=== PATIENT | female | born 1995 | race American Indian/Alaskan Native ===

== ENCOUNTER 2017-09-29 13:38 | Emergency (ER) | payer MEDICAID, OTHER ==
[2017-09-29 14:15] VITALS: BP 102/59
== END 2017-09-29 14:30 | disposition left against medical advice (07) ==
LOC: ED 13:38
DX: J02.9 Acute pharyngitis, unspecified (principal); H92.09 Otalgia, unspecified ear; Z53.21 Procedure and treatment not carried out due to patient leaving prior to being seen by health care provider

== ENCOUNTER 2018-04-16 14:25 | Emergency (ER) | payer MEDICAID ==
[2018-04-16] MEDS ORDERED: IBUPROFEN PO ONE (15:11)
[2018-04-16] MEDS ORDERED: TESSALON PERLES PO ONE (15:11)
[2018-04-16 16:38] LABS: Bilirubin,Urine NEG (Negative); Blood,Urine NEG (Negative); Color,Urine Yellow (Yellow); Mucus,Urine 3+ /HPF; Protein,Urine <15 mg/dL mg/dL (Negative)
--- NOTE | 2018-04-16 17:23 | Emergency Department Report ---
- General Chief Complaint: Upper Respiratory Infection Stated Complaint: FLU LIKE SYMPTOMS Time Seen by Provider: 04/16/18 15:08 Source: patient Mode of arrival: Ambulatory Limitations: No Limitations - History of Present Illness Initial Comments: This is a 22-year-old female nontoxic, well nourished in appearance, no acute signs of distress presents to the ED with c/o of productive cough, fever, chills, body aches, rhinorrhea, nasal congestion x2 days. Patient describes productive cough as yellow mucus production. Patient denies any sick contact. Patient denies any recent travels, long car, recent hospital stays. Patient denies any calf pain or calf tenderness. Patient denies any chest pain, short of breath, fever, chills, nausea, vomiting, hemoptysis, numbness, tingling, headache or stiff neck. Patient denies any allergies. MD Complaint: fever, cough, rhinorrhea, nasal congestion, other (body aches) -: days(s) (2) Severity: mild Severity scale (0 -10): 8 Quality: aching Consistency: constant Improves With: nothing Worsens With: nothing Associated Symptoms: fever, chills, rhinorrhea, nasal congestion, cough. denies: myalgias, diaphoresis, headache, sore throat, stiff neck, chest pain, shortness of breath, abdominal pain, nausea, vomiting, diarrhea, dysuria, rash, confusion, right sweats, weight loss, epistaxis, hoarseness, ear pain Treatments Prior to Arrival: none - Related Data Previous Rx's Medication Instructions Recorded Last Taken Type Cyclobenzaprine [Flexeril] 10 mg PO TID PRN #15 tablet 02/21/16 Unknown Rx Ibuprofen [Motrin 800 MG tab] 800 mg PO Q8HR PRN #20 tablet 02/21/16 Unknown Rx Acetaminophen [Tylenol] 325 mg PO Q6H PRN #20 capsule 04/16/18 Unknown Rx Azithromycin [Zithromax Z-YUN] 250 mg PO DAILY #6 tablet 04/16/18 Unknown Rx Oseltamivir [Tamiflu] 75 mg PO BID #14 cap 04/16/18 Unknown Rx 21/Iron Fu/Folic Acid 1 each PO DAILY #30 tablet 04/16/18 Unknown Rx [ Complete Caplet] Allergies Allergy/AdvReac Type Severity Reaction Status Date / Time No Known Allergies Allergy Unverified 02/21/16 17:29 ED Review of Systems ROS: Stated complaint: FLU LIKE SYMPTOMS Other details as noted in HPI Constitutional: denies: chills, fever Eyes: denies: eye pain, eye discharge, vision change ENT: congestion. denies: ear pain, throat pain Respiratory: cough. denies: shortness of breath, wheezing Cardiovascular: denies: chest pain, palpitations Endocrine: no symptoms reported Gastrointestinal: denies: abdominal pain, nausea, diarrhea Genitourinary: denies: urgency, dysuria, discharge Musculoskeletal: denies: back pain, joint swelling, arthralgia Skin: denies: rash, lesions Neurological: denies: headache, weakness, paresthesias Psychiatric: denies: anxiety, depression Hematological/Lymphatic: denies: easy bleeding, easy bruising ED Past Medical Hx - Past Medical History Previous Medical History?: Yes Hx Asthma: Yes - Surgical History Past Surgical History?: Yes Additional Surgical History: c section - Social History Smoking Status: Never Smoker Substance Use Type: None - Medications Home Medications: Home Medications Medication Instructions Recorded Confirmed Last Taken Type Cyclobenzaprine [Flexeril] 10 mg PO TID PRN #15 tablet 02/21/16 Unknown Rx Ibuprofen [Motrin 800 MG tab] 800 mg PO Q8HR PRN #20 tablet 02/21/16 Unknown Rx Acetaminophen [Tylenol] 325 mg PO Q6H PRN #20 capsule 04/16/18 Unknown Rx Azithromycin [Zithromax Z-YUN] 250 mg PO DAILY #6 tablet 04/16/18 Unknown Rx Oseltamivir [Tamiflu] 75 mg PO BID #14 cap 04/16/18 Unknown Rx 21/Iron Fu/Folic Acid 1 each PO DAILY #30 tablet 04/16/18 Unknown Rx [ Complete Caplet] ED Physical Exam - General Limitations: No Limitations General appearance: alert, in no apparent distress - Head Head exam: Present: atraumatic, normocephalic - Eye Eye exam: Present: normal appearance - ENT ENT exam: Present: normal exam, normal orophraynx - Neck Neck exam: Present: normal inspection, full ROM. Absent: tenderness, meningismus, lymphadenopathy - Respiratory Respiratory exam: Present: normal lung sounds bilaterally. Absent: respiratory distress, wheezes, rales, rhonchi, stridor, chest wall tenderness, accessory muscle use, decreased breath sounds, prolonged expiratory - Cardiovascular Cardiovascular Exam: Present: regular rate, normal rhythm, normal heart sounds. Absent: bradycardia, tachycardia, irregular rhythm, systolic murmur, diastolic murmur, rubs, gallop - GI/Abdominal GI/Abdominal exam: Present: soft, normal bowel sounds. Absent: distended, tenderness, guarding, rebound, rigid, diminished bowel sounds - Extremities Exam Extremities exam: Present: normal inspection, full ROM - Back Exam Back exam: Present: normal inspection, full ROM. Absent: tenderness, CVA tenderness (R), CVA tenderness (L), muscle spasm, paraspinal tenderness, vertebral tenderness, rash noted - Neurological Exam Neurological exam: Present: alert, oriented X3 - Psychiatric Psychiatric exam: Present: normal affect, normal mood - Skin Skin exam: Present: warm, dry, intact, normal color. Absent: rash ED Course Vital Signs 04/16/18 04/16/18 14:34 15:36 Temperature 98.6 F Pulse Rate 81 Respiratory 18 18 Rate Blood Pressure 113/69 O2 Sat by Pulse 100 Oximetry - Reevaluation(s) Reevaluation #1: 04/16/18 17:21 Patient is speaking in full sentences with no signs of distress noted. ED Medical Decision Making - Medical Decision Making This is a 22-year-old female that presents with flu like symptoms. Patient is stable and was examined by me. Patient was not aware of but test states positive. Patient was informed about risk and benefits of chest xray and and patient signed consent to proceed. Chest x-ray has been obtained and dictated by radiologist with normal exam. Patient is notified of x-ray results with no questions noted. No flu swabs available in the ED, as per RN. I will treat patient empirically with Tamiflu due to the symptoms. Patient was instructed to increase hydration, rest and take Motrin for fever episodes. Patient received Tylenol and tesslone perrls in the ED. Vitals stable. Patient is nonfebrile and normal heart rate. Patient was instructed Follow-up with a primary care doctor in 3-5 days or if symptoms worsen and continue return to emergency room as soon as possible. At time time of discharge, the patient does not seem toxic or ill in appearance. No acute signs of distress noted. Patient agrees to discharge treatment plan of care. No further questions noted by the patient. Critical care attestation.: If time is entered above; I have spent that time in minutes in the direct care of this critically ill patient, excluding procedure time. ED Disposition Clinical Impression: Bronchitis, Flu-like symptoms Disposition: TO HOME OR SELFCARE Is pt being admited?: No Does the pt Need Aspirin: No Condition: Stable Instructions: Acute Bronchitis (ED) Additional Instructions: Follow-up with a primary care/OBGYN doctor in 3-5 days or if symptoms worsen and continue return to emergency room as soon as possible. Prescriptions: Acetaminophen [Tylenol] 325 mg PO Q6H PRN #20 capsule PRN Reason: pain/fever Azithromycin [Zithromax Z-YUN] 250 mg PO DAILY #6 tablet Oseltamivir [Tamiflu] 75 mg PO BID #14 cap 21/Iron Fu/Folic Acid [ Complete Caplet] 1 each PO DAILY #30 tablet Referrals: PRIMARY CAREMD [Referring] - 3-5 Days MILENA JAIMES MD [Staff Physician] - 3-5 Days JACOB ANTONIO MD [Staff Physician] - 3-5 Days [facility] [Provider Group] - 3-5 Days Forms: Work/School Release Form(ED)
--- NOTE | 2018-04-16 18:03 | XRay Report ---
FINAL REPORT EXAM: XR CHEST ROUTINE 2V HISTORY: cough TECHNIQUE: PA and lateral views of the chest Comparison: X-ray chest dated February 21, 2016 FINDINGS: There prominence of the interstitial markings with peribronchial thickening which may represent bello es of bronchiolitis. There is no definite evidence of focal infiltrate and no evidence of pneumothorax or pleural fluid co llection. The cardiomediastinal silhouette is normal in appearance. The bony structures are unremarkable. IMPRESSION: 1. Prominence of the interstitial markings with peribronchial thickening which may represent changes of bronchiolitis. However, early peribronchial pulmonary infiltrates cannot be excluded.
[2018-04-16 18:22] VITALS: BP 138/79
== END 2018-04-16 18:18 | disposition home or self-care (01) ==
LOC: ED 14:25
DX: J45.909 Unspecified asthma, uncomplicated (principal)
CPT/HCPCS: 36415; 71046; 81001; 84703; 99284

== ENCOUNTER 2019-04-26 14:47 | Emergency (ER) | payer SELFPAY ==
--- NOTE | 2019-04-26 15:44 | Event Note ---
ED Screening Note Date of service: 04/26/19 Time: 15:44 ED Screening Note: preg (unknown gestational age) with bleeding and cramps (clots). no syncope This initial assessment/diagnostic orders/clinical plan/treatment(s) is/are subject to change based on patients health status, clinical progression and re- assessment by fellow clinical providers in the ED. Further treatment and workup at subsequent clinical providers discretion. Patient/guardian urged not to elope from the ED as their condition may be serious if not clinically assessed and managed. Initial orders include: quant labs US ob Patient Rh + no Rhogam in previous miscarriage last year
[2019-04-26 17:07] LABS: Bacteria,Urine 2+ /HPF (Negative); Bilirubin,Urine NEG (Negative); Blood,Urine LG (Negative); Color,Urine Red (Yellow); Mucus,Urine FEW /HPF; Urobilinogen,Urine < 2.0 mg/dL (<2.0)
[2019-04-26 17:12] LABS: RBC,Urine > 128.0 /HPF (0.0-6.0); WBC,Urine > 128.0 /HPF (0.0-6.0)
--- NOTE | 2019-04-26 17:14 | Emergency Department Report ---
ED General Adult HPI - General Chief complaint: Abdominal Pain Stated complaint: POSS PREG TEST/ABD PAIN/ACHES Time Seen by Provider: 04/26/19 16:57 Source: patient Mode of arrival: Ambulatory Limitations: No Limitations - History of Present Illness Initial comments: Patient is a 23-year-old female presents emergency room with complaints of lower abdominal pain that began 2 days ago. She has associated vaginal bleeding which she states was initially heavy but has now become light. Patient states that she went to her primary care physician and her urine was tested and it was positive on April 18. Patient was also evaluated emergency department for URI symptoms on April 16 and had a positive hCG qualitative. She has not seen an EQUIPMENT SERVICE ASSOCIATE. She denies any nausea, vomiting, diarrhea, fever, urinary symptoms, vaginal irritation, vaginal discharge. She states her last menstrual cycle was March 26. She has a past medical history of asthma. She denies any allergies medications. /P:3/A:0 - Related Data Previous Rx's Medication Instructions Recorded Last Taken Type Cyclobenzaprine [Flexeril] 10 mg PO TID PRN #15 tablet 02/21/16 Unknown Rx Ibuprofen [Motrin 800 MG tab] 800 mg PO Q8HR PRN #20 tablet 02/21/16 Unknown Rx Acetaminophen [Tylenol] 325 mg PO Q6H PRN #20 capsule 04/16/18 Unknown Rx Azithromycin [Zithromax Z-YUN] 250 mg PO DAILY #6 tablet 04/16/18 Unknown Rx Oseltamivir [Tamiflu] 75 mg PO BID #14 cap 04/16/18 Unknown Rx 21/Iron Fu/Folic Acid 1 each PO DAILY #30 tablet 04/16/18 Unknown Rx [ Complete Caplet] cephALEXin [Keflex] 500 mg PO BID 7 Days #14 cap 04/26/19 Unknown Rx Allergies Allergy/AdvReac Type Severity Reaction Status Date / Time No Known Allergies Allergy Unverified 02/21/16 17:29 ED Review of Systems ROS: Stated complaint: POSS PREG TEST/ABD PAIN/ACHES Other details as noted in HPI Comment: All other systems reviewed and negative ED Past Medical Hx - Past Medical History Previous Medical History?: Yes Hx Asthma: Yes - Surgical History Past Surgical History?: Yes Additional Surgical History: c section - Social History Smoking Status: Current Every Day Smoker Substance Use Type: None - Medications Home Medications: Home Medications Medication Instructions Recorded Confirmed Last Taken Type Cyclobenzaprine [Flexeril] 10 mg PO TID PRN #15 tablet 02/21/16 Unknown Rx Ibuprofen [Motrin 800 MG tab] 800 mg PO Q8HR PRN #20 tablet 02/21/16 Unknown Rx Acetaminophen [Tylenol] 325 mg PO Q6H PRN #20 capsule 04/16/18 Unknown Rx Azithromycin [Zithromax Z-YUN] 250 mg PO DAILY #6 tablet 04/16/18 Unknown Rx Oseltamivir [Tamiflu] 75 mg PO BID #14 cap 04/16/18 Unknown Rx 21/Iron Fu/Folic Acid 1 each PO DAILY #30 tablet 04/16/18 Unknown Rx [ Complete Caplet] cephALEXin [Keflex] 500 mg PO BID 7 Days #14 cap 04/26/19 Unknown Rx ED Physical Exam - General Limitations: No Limitations General appearance: alert, in no apparent distress - Head Head exam: Present: atraumatic, normocephalic - Eye Eye exam: Present: normal appearance - ENT ENT exam: Present: mucous membranes moist - Respiratory Respiratory exam: Present: normal lung sounds bilaterally. Absent: respiratory distress, wheezes, rales, rhonchi, stridor, chest wall tenderness, accessory muscle use, decreased breath sounds, prolonged expiratory - Cardiovascular Cardiovascular Exam: Present: regular rate, normal rhythm, normal heart sounds. Absent: systolic murmur, diastolic murmur, rubs, gallop - GI/Abdominal GI/Abdominal exam: Present: soft, normal bowel sounds. Absent: distended, tenderness, guarding, rebound, rigid - Neurological Exam Neurological exam: Present: alert, oriented X3 - Psychiatric Psychiatric exam: Present: normal affect, normal mood - Skin Skin exam: Present: warm, dry, intact ED Medical Decision Making - Lab Data Result diagrams: 04/26/19 17:01 04/26/19 17:01 - Radiology Data Radiology results: report reviewed ULTRASOUND OBSTETRIC INDICATION: with abdominal pain/bleeding. Estimated clinical age of 4 weeks, 3 days. TECHNIQUE: Transabdominal and Transvaginal. COMPARISON: None available. FINDINGS: GESTATIONAL SAC: None seen. YOLK SAC: None seen. EMBRYO/FETUS: None seen. UTERUS: The uterus appears unremarkable and measures 10.3 x 4.1 x 5.3 cm. The endometrium measures 5 mm in thickness. ADNEXA: No significant abnormality. FREE FLUID: None. ADDITIONAL FINDINGS: None. IMPRESSION: No sonographic evidence of an intrauterine or ectopic . Signer Name: Cj Jesus MD Signed: 04/26/2019 5:54 PM Workstation Name: [id number] Transcribed By: DEMETRIO Dictated By: Cj Jesus MD Electronically Authenticated By: Cj Jesus MD Signed Date/Time: 04/26/191753 DD/ 51 TD/TT: - Medical Decision Making Patient is a 23-year-old female presents emergency room with complaints of lower abdominal pain that began 2 days ago. She has associated vaginal bleeding which she states was initially heavy but has now become light. Patient states that she went to her primary care physician and her urine was tested and it was positive on April 18. Patient was also evaluated emergency department for URI symptoms on April 16 and had a positive hCG qualitative. She has not seen an EQUIPMENT SERVICE ASSOCIATE. She denies any nausea, vomiting, diarrhea, fever, urinary symptoms, vaginal irritation, vaginal discharge. She states her last menstrual cycle was March 26. She has a past medical history of asthma. She denies any allergies medications. /P:3/A:0. vss. no abd tenderness on exam, no guarding, no rebound. hcg quant is negative, less than 2. UA shows many RBCs, many WBCs, and trace leukocyte esterase, difficult to determine if from contamination from blood, will tx pt for UTI with keflex. OB US: No sonographic evidence of an intrauterine or ectopic . discussed all results with pt and answered questions. advised pt to please take medication as prescribed to completion. increase your water intake. Follow up with a primary care doctor and EQUIPMENT SERVICE ASSOCIATE. Return to the emergency room for any new or worsening symptoms. - Differential Diagnosis IUP, ectopic, miscarriage, hemorrhagic cyst, mass, UTI, subchorionic hemorr Critical care attestation.: If time is entered above; I have spent that time in minutes in the direct care of this critically ill patient, excluding procedure time. ED Disposition Clinical Impression: Lower abdominal pain, Vaginal bleeding, Miscarriage UTI (urinary tract infection) Qualifiers: Urinary tract infection type: acute cystitis Hematuria presence: with hematuria Qualified Code(s): N30.01 - Acute cystitis with hematuria Disposition: DC-01 TO HOME OR SELFCARE Is pt being admited?: No Does the pt Need Aspirin: No Condition: Stable Instructions: Spontaneous Miscarriage (ED), Urinary Tract Infection in Women (ED) Additional Instructions: please take medication as prescribed to completion. increase your water intake. Follow up with a primary care doctor and EQUIPMENT SERVICE ASSOCIATE. Return to the emergency room for any new or worsening symptoms. Prescriptions: cephALEXin [Keflex] 500 mg PO BID 7 Days #14 cap Referrals: KRANTHI HENDRIX MD [Primary Care Provider] - 2-3 Days [facility] [Provider Group] - 2-3 Days [facility] [Provider Group] - 2-3 Days [facility] [Provider Group] - 2-3 Days Time of Disposition: 18:08 Print Language: ROMANIAN
[2019-04-26 17:29] LABS: Eosinophils # (Auto) 0.2 K/mm3 (0.0-0.4); Eosinophils % (Auto) 3.9 % (0.0-4.3); Hematocrit 33.6 % (30.3-42.9); Hemoglobin 10.7 gm/dl (10.1-14.3); Lymphocytes # (Auto) 1.7 K/mm3 (1.2-5.4); Lymphocytes % (Auto) 36.9 % (13.4-35.0); Mean Corpuscular HGB Conc 32 % (30-34); Mean Corpuscular Volume 79 fl (79-97); Monocytes # (Auto) 0.4 K/mm3 (0.0-0.8); Monocytes % (Auto) 8.4 % (0.0-7.3); Platelet Count 256 K/mm3 (140-440); Red Blood Count 4.27 M/mm3 (3.65-5.03); Red Cell Distribution Width 17.2 % (13.2-15.2)
[2019-04-26 17:46] LABS: BUN/Creatinine Ratio 14; Blood Urea Nitrogen 10 mg/dL (7-17); Calcium 9.3 mg/dL (8.4-10.2); Hemolysis Index 18
--- NOTE | 2019-04-26 17:58 | Ultrasound Report ---
ULTRASOUND OBSTETRIC INDICATION: with abdominal pain/bleeding. Estimated clinical age of 4 weeks, 3 days. TECHNIQUE: Transabdominal and Transvaginal. COMPARISON: None available. FINDINGS: GESTATIONAL SAC: None seen. YOLK SAC: None seen. EMBRYO/FETUS: None seen. UTERUS: The uterus appears unremarkable and measures 10.3 x 4.1 x 5.3 cm. The endometrium measures 5 mm in thickness. ADNEXA: No significant abnormality. FREE FLUID: None. ADDITIONAL FINDINGS: None. IMPRESSION: No sonographic evidence of an intrauterine or ectopic . Signer Name: Cj Jesus MD Signed: 04/26/2019 5:54 PM Workstation Name: [id number]
[2019-04-26 18:25] VITALS: BP 117/68
== END 2019-04-26 18:45 | disposition home or self-care (01) ==
LOC: ED 14:47
DX: O26.891 Other specified pregnancy related conditions, first trimester (principal); R10.30 Lower abdominal pain, unspecified; O03.9 Complete or unspecified spontaneous abortion without complication; O23.41 Unspecified infection of urinary tract in pregnancy, first trimester; J45.909 Unspecified asthma, uncomplicated; F17.200 Nicotine dependence, unspecified, uncomplicated; Z3A.01 Less than 8 weeks gestation of pregnancy; Z98.890 Other specified postprocedural states; Z79.1 Long term (current) use of non-steroidal anti-inflammatories (NSAID); Z79.899 Other long term (current) drug therapy
CPT/HCPCS: 36415; 76801; 76817; 80048; 81001; 84702; 85025; 86900; 86901; 87086

== ENCOUNTER 2019-09-01 07:53 | Emergency (ER) | payer SELFPAY ==
[2019-09-01 08:13] VITALS: BP 114/61
== END 2019-09-01 14:46 | disposition left against medical advice (07) ==
LOC: ED 07:53
DX: R07.89 Other chest pain (principal); Z53.21 Procedure and treatment not carried out due to patient leaving prior to being seen by health care provider
CPT/HCPCS: 93005

== ENCOUNTER 2020-02-17 18:47 | Outpatient (CLI) | payer OTHER ==
[2020-02-17 19:54] VITALS: BP 101/59
== END 2020-02-17 21:45 | disposition home or self-care (01) ==
LOC: TRG 18:47 → LD 18:48 → TRG 21:45
PROVIDERS: ATTEND Obstetrics & Gynecology
DX: O23.42 Unspecified infection of urinary tract in pregnancy, second trimester (principal); R31.9 Hematuria, unspecified; Z3A.27 27 weeks gestation of pregnancy
CPT/HCPCS: 59025

== ENCOUNTER 2020-11-07 14:56 | Emergency (ER) | payer OTHER ==
--- NOTE | 2020-11-07 17:28 | Emergency Department Report ---
ED General Adult HPI - General Chief complaint: Pain General Stated complaint: BODY ACHES Time Seen by Provider: 11/07/20 17:24 Source: patient Mode of arrival: Ambulatory Limitations: No Limitations - History of Present Illness Initial comments: Patient is 24 years old female with no significant past medical history. Patient presented to the ER complaining of generalized body ache, fever, runny nose cough and congestion. Patient denied any nausea or vomiting. No shortness of breath. Patient stated that she did not receive her COVID-19 vaccine yet. - Related Data Previous Rx's Medication Instructions Recorded Last Taken Type Cyclobenzaprine [Flexeril] 10 mg PO TID PRN #15 tablet 02/21/16 Unknown Rx Ibuprofen [Motrin 800 MG tab] 800 mg PO Q8HR PRN #20 tablet 02/21/16 Unknown Rx Acetaminophen [Tylenol] 325 mg PO Q6H PRN #20 capsule 04/16/18 Unknown Rx Azithromycin [Zithromax Z-YUN] 250 mg PO DAILY #6 tablet 04/16/18 Unknown Rx Oseltamivir [Tamiflu] 75 mg PO BID #14 cap 04/16/18 Unknown Rx 21/Iron Fu/Folic Acid 1 each PO DAILY #30 tablet 04/16/18 Unknown Rx [ Complete Caplet] cephALEXin [Keflex] 500 mg PO BID 7 Days #14 cap 04/26/19 Unknown Rx Allergies Allergy/AdvReac Type Severity Reaction Status Date / Time No Known Allergies Allergy Verified 09/01/19 08:05 ED Review of Systems ROS: Stated complaint: BODY ACHES Other details as noted in HPI Comment: All other systems reviewed and negative Constitutional: chills, fever, malaise ENT: congestion Respiratory: cough Cardiovascular: denies: chest pain, palpitations Gastrointestinal: denies: abdominal pain, nausea, vomiting Neurological: denies: headache, weakness, numbness, paresthesias, confusion, abnormal gait ED Past Medical Hx - Past Medical History Previous Medical History?: Yes Hx Hypertension: No Hx Diabetes: No Hx Deep Vein Thrombosis: No Hx Renal Disease: No Hx Sickle Cell Disease: No Hx Seizures: No Hx Asthma: Yes (inh -4 days ago) Hx HIV: No - Surgical History Past Surgical History?: Yes Additional Surgical History: c section - Social History Smoking Status: Never Smoker - Medications Home Medications: Home Medications Medication Instructions Recorded Confirmed Last Taken Type Cyclobenzaprine [Flexeril] 10 mg PO TID PRN #15 tablet 02/21/16 Unknown Rx Ibuprofen [Motrin 800 MG tab] 800 mg PO Q8HR PRN #20 tablet 02/21/16 Unknown Rx Acetaminophen [Tylenol] 325 mg PO Q6H PRN #20 capsule 04/16/18 Unknown Rx Azithromycin [Zithromax Z-YUN] 250 mg PO DAILY #6 tablet 04/16/18 Unknown Rx Oseltamivir [Tamiflu] 75 mg PO BID #14 cap 04/16/18 Unknown Rx 21/Iron Fu/Folic Acid 1 each PO DAILY #30 tablet 04/16/18 Unknown Rx [ Complete Caplet] cephALEXin [Keflex] 500 mg PO BID 7 Days #14 cap 04/26/19 Unknown Rx ED Physical Exam - General Limitations: No Limitations General appearance: alert, in no apparent distress - Head Head exam: Present: atraumatic, normocephalic, normal inspection - Eye Eye exam: Present: normal appearance, PERRL - ENT ENT exam: Present: normal exam, normal orophraynx, mucous membranes moist - Neck Neck exam: Present: normal inspection, full ROM. Absent: tenderness, meningismus - Respiratory Respiratory exam: Present: normal lung sounds bilaterally - Cardiovascular Cardiovascular Exam: Present: regular rate, normal rhythm, normal heart sounds - GI/Abdominal GI/Abdominal exam: Present: soft, normal bowel sounds. Absent: distended, tenderness, guarding, rebound, rigid, organomegaly, mass, bruit, pulsatile mass, hernia - Extremities Exam Extremities exam: Present: normal inspection, full ROM, normal capillary refill. Absent: tenderness - Back Exam Back exam: Present: normal inspection, full ROM. Absent: CVA tenderness (R), CVA tenderness (L) - Neurological Exam Neurological exam: Present: alert, oriented X3, CN II-XII intact, normal gait, reflexes normal. Absent: motor sensory deficit - Psychiatric Psychiatric exam: Present: normal mood - Skin Skin exam: Present: warm, intact, normal color ED Course Vital Signs 11/07/20 16:24 Temperature 100.0 F H Pulse Rate 98 H Respiratory 20 Rate Blood Pressure 119/59 O2 Sat by Pulse 98 Oximetry ED Medical Decision Making - Lab Data Result diagrams: 11/07/20 17:31 11/07/20 17:31 - Radiology Data Radiology results: report reviewed - Medical Decision Making Patient is 24 years old female with no significant past medical history. Patient presented to the ER complaining of generalized body ache, fever, runny nose cough and congestion. Patient denied any nausea or vomiting. No shortness of breath. Patient stated that she did not receive her COVID-19 vaccine yet. Labs reviewed and is unremarkable. Chest x-ray is negative for acute finding. Patient symptom is suggestive of viral syndrome given the COVID-19 pandemic patient strongly advised to self quarantine and to have COVID-19 test in the next 1 or 2 days. Patient also advised to follow-up with her primary care physician in the next 2 to 3 days and to return to the ER she develop any new symptoms. Critical care attestation.: If time is entered above; I have spent that time in minutes in the direct care of this critically ill patient, excluding procedure time. ED Disposition Clinical Impression: Viral syndrome, Suspected COVID-19 virus infection Disposition: HOME / SELF CARE / HOMELESS Is pt being admited?: No Condition: Stable Instructions: Viral Respiratory Infection, [id number], COVID-19 Frequently Asked Questions, Prevent the Spread of COVID-19 if You Are Sick - [facility] Referrals: PRIMARY CARE, [Primary Care Provider] - 3-5 Days
[2020-11-07 18:18] LABS: Hematocrit 40.8 % (30.3-42.9); Hemoglobin 13.6 gm/dl (10.1-14.3); Mean Corpuscular HGB Conc 33 % (30-34); Mean Corpuscular Volume 90 fl (79-97); Platelet Count 166 K/mm3 (140-440); Red Blood Count 4.55 M/mm3 (3.65-5.03); Red Cell Distribution Width 15.2 % (13.2-15.2)
[2020-11-07 18:26] LABS: Blood Urea Nitrogen 8 mg/dL (7-17); Calcium 9.3 mg/dL (8.4-10.2); Hemolysis Index 7
[2020-11-07 18:40] LABS: BUN/Creatinine Ratio 11
--- NOTE | 2020-11-07 18:54 | XRay Report ---
CHEST 2 VIEWS 1838 INDICATION / CLINICAL INFORMATION: cough,fever COMPARISON: 04/16/2018 FINDINGS: SUPPORT DEVICES: None. HEART / MEDIASTINUM: No significant abnormality. LUNGS / PLEURA: No significant pulmonary or pleural abnormality. No pneumothorax. ADDITIONAL FINDINGS: No significant additional findings. IMPRESSION: No significant acute abnormality Signer Name: Frankie Centeno MD Signed: 11/07/2020 6:50 PM Workstation Name: [id number]
[2020-11-07 19:51] LABS: Giant Platelets Rare; RBC Morphology Normal; Total Cells Counted 100
[2020-11-07 19:53] VITALS: BP 105/63
== END 2020-11-07 19:53 | disposition home or self-care (01) ==
LOC: ED 14:56
DX: B34.9 Viral infection, unspecified (principal); Z20.822 Contact with and (suspected) exposure to COVID-19; J45.909 Unspecified asthma, uncomplicated; Z98.890 Other specified postprocedural states; Z79.899 Other long term (current) drug therapy
CPT/HCPCS: 36415; 71046; 80048; 84703; 85007; 85025; 99283